=== PATIENT | male | born 2000 | race Asian ===

== ENCOUNTER 2024-06-05 13:36 | Outpatient (REF) | payer BC, SELFPAY ==
[2024-06-08 00:14] LABS: TS Negative Control Passed; TS Panel A 0; TS Panel B 0; TS Positive Control Passed; TSpotTB Negative (Negative)
== END 2024-06-05 13:37 | disposition home or self-care (01) ==
LOC: HO.CHCLDS 13:36
PROVIDERS: Visit Provider Physician Assistant Medical
DX: Z11.1 Encounter for screening for respiratory tuberculosis (principal)
CPT/HCPCS: 36415; 86481